=== PATIENT | female | born 1950 | race Caucasian/White ===

== ENCOUNTER → 2017-03-15 | Outpatient (CLI) | payer MEDICARE | END | disposition home or self-care (01) | LOC: LABWHC1 10:26 | PROVIDERS: ATTEND Internal Medicine Rheumatology | DX: M31.4 Aortic arch syndrome [Takayasu] (principal); Z51.81 Encounter for therapeutic drug level monitoring | CPT/HCPCS: 36415; 85652 ==

== ENCOUNTER → 2017-04-27 | Outpatient (CLI) | payer MEDICARE ==
--- NOTE | 2017-04-27 16:58 | BD ---
EXAMINATION TYPE: MG DEXA axial skeleton. DATE OF EXAM: 04/27/2017 History: 67-year-old female disorder of bone. Height: 64 Weight: 141 FRAX RISK QUESTIONS: Alcohol (3 or more units per day): no Family History (Parent hip fracture): yes, mother Glucocorticoids (More than 3mos): yes (Ex: prednisone, prednisolone, methylprednisolone, dexamethasone, and hydrocortisone). History of Fracture in Adulthood: no Secondary Osteoporosis: 1. Type 1 Diabetes: no 2. Hyperthyroidism: no 3. Menopause before 45: no 4. Malnutrition: no 5. Chronic liver disease: no Rheumatoid Arthritis: no Current Tobacco Use: no RISK FACTORS HISTORY OF: Hip Fracture (Right/Left): no Spine Fracture: no History of Wrist Fracture: no Surgery to Spine/Hip(right/left)/Wrist (right/left): no Family History of Osteoporosis: yes Active: yes Diet low in dairy products/other sources of calcium: no Postmenopausal woman: yes Take estrogen and/or progesterone medications: not now How lon years Lost more than 2 inches in height since high school: no Frequent falls: no Poor Health: no Hyperparathyroidism: no Adrenal Insufficiency: no MEDICATIONS: Prednisone or other steroids: yes How Long: about 20 years Thyroid Medications: no Osteoporosis Medications: not now Which medication: does not recall How Long: years ago Additional Medications: Enbrel Additional History: Takayasu's arteritis EXAM MEASUREMENTS: Bone mineral densitometry was performed using the [employer] System. Bone mineral density as measured about the Lumbar spine is: ----- L1-L4(G/cm2): 0.954 T Score Values are as follows: ----- L2: -2.4 ----- L3: -1.8 ----- L4: -1.4 ----- L1-L4: -1.9 Bone mineral density has: Decreased -1.4% since study of: 08/01/2014 Bone mineral density about the R hip (g/cm2): 0.818 Bone mineral density about the L hip (g/cm2): 0.842 T Score values are as follows: -----R Neck: -1.6 -----L Neck: -1.4 -----R Total: -1.4 -----L Total: -1.4 Bone mineral density has: Decreased -1.2% since study of: 08/01/2014 IMPRESSION: Osteopenia (T Score between -2.5 and -1 as noted by T score values There is slightly increased risk of fracture and the patient may be considered for treatment. Re-Screen 2-5 years. NOTE: T-SCORE=SD OF THE YOUNG ADULT MEAN.
--- NOTE | 2017-04-28 07:52 | MM ---
Reason for exam: screening (asymptomatic). Last mammogram was performed 1 year and 1 month ago. History: Patient is postmenopausal. Family history of breast cancer in maternal cousin and breast cancer in paternal grandmother. Took estrogen for 2 years. Physical Findings: A clinical breast exam by your physician is recommended on an annual basis and results should be correlated with mammographic findings. MG 3D Screening Mammo W/Cad Bilateral CC and MLO view(s) were taken. Prior study comparison: March 24, 2016, bilateral MG 3d screening mammo w/cad. December 18, 2014, bilateral MG screening mammo w CAD. The breast tissue is heterogeneously dense. This may lower the sensitivity of mammography. No significant changes when compared with prior studies. ASSESSMENT: Benign, BI-RAD 2 RECOMMENDATION: Routine screening mammogram of both breasts in 1 year.
--- NOTE | 2017-04-28 10:16 | WWHP ---
DATE OF SERVICE: 04/27/2017 CHIEF COMPLAINT: The patient is here for her routine gynecologic exam and mammogram. HPI: This is a 67-year-old G2, P2 with an LMP of 2005. The patient is without gynecologic complaints and denies any postmenopausal bleeding. She denies any significant problems with vaginal prolapse. She did have an abnormal PAP smear last year showing ASCUS with a negative high risk HPV testing. PAST MEDICAL HISTORY: Takayasu's arteritis, anxiety, seasonal allergies, and osteopenia. She did use bisphosphonates for 2 years up to 2011. MEDICATIONS: 1. Calcium 1200 mg daily. 2. Multivitamin daily. 3. Enbrel injections every other week. 4. Zoloft daily. 5. Claritin p.r.n. 6. Glucosamine daily. 7. Drysol antiperspirant p.r.n. 8. Prednisone 5 mg daily. Allergies to methotrexate. Past surgical, [employer] and family histories are unchanged from the 2016 H&P. SOCIAL HISTORY: She denies tobacco and drug use and drinks about 3 to 4 alcohol -containing drinks per week. She has been since 1970 and is retired. She enjoys traveling with [employer]. REVIEW OF SYSTEMS: Weight has been stable. She denies respiratory, cardiac or GI problems. She denies maltreatment. She states she has fallen twice when she tripped over things on two different occasions during the year but there was no significant injury. : She denies any significant problems with urinary leakage. PHYSICAL EXAM: Blood pressure 119/77, height 5 feet, 4 inches, weight 141 pounds, temperature 97.5, pulse 62. This is a well-developed, well nourished white female who is alert and oriented x3 in no acute distress. HEENT is within radha limits. NECK: Supple without mass or thyromegaly. Chest and lungs clear to auscultation. HEART: Regular rate and rhythm. Breasts are without mass or discharge. Axillary exam is negative for adenopathy. Back negative for CVA tenderness. ABDOMEN: Soft, nontender without palpable masses. PELVIC EXAM: External genitalia reveals mild to moderate atrophy without lesions. Cervix and vagina reveals mild to moderate atrophy without lesions. There is no significant prolapse at rest but there is a grade 2 cystocele with Valsalva. No other prolapse is noted. The uterus is midposition, nongravid size and nontender. There are no palpable adnexal masses or tenderness. Rectovaginal exam is negative for mass or tenderness and is negative for occult blood. EXTREMITIES: Nontender. IMPRESSION: 1. A 67-year-old menopausal female with stable grade 2 cystocele which is asymptomatic. 2. Otherwise unremarkable gynecologic exam. PLAN: 1. PAP smear was performed. 2. Self-breast examination was discussed. 3. Mammogram will be done today. 4. Osteoporosis prevention was discussed. Bone density testing will be done today. 5. She will consider getting flu shots in the fall. 6. We have discussed the 2 trips and falls that she has taken and these were minor. She is declining any other work-up or testing for this. 7. She will return in 1 year. REG
== END ==
LOC: WWCWWP 10:36
PROVIDERS: ATTEND Obstetrics & Gynecology
DX: Z12.31 Encounter for screening mammogram for malignant neoplasm of breast (principal); M85.80 Other specified disorders of bone density and structure, unspecified site; Z78.0 Asymptomatic menopausal state
CPT/HCPCS: 77080; 77063; G0202

== ENCOUNTER → 2018-03-07 | Outpatient (CLI) | payer MEDICARE | END | disposition home or self-care (01) | LOC: LABWHC1 13:23 | PROVIDERS: ATTEND Internal Medicine Rheumatology | DX: Z51.81 Encounter for therapeutic drug level monitoring (principal); M31.4 Aortic arch syndrome [Takayasu] | CPT/HCPCS: 36415; 85652 ==

== ENCOUNTER → 2018-06-15 | Outpatient (CLI) | payer MEDICARE ==
[2018-06-15 09:07] VITALS: BP 116/69; PULSE 69; TEMP 96.8; BMI 24.2
--- NOTE | 2018-06-15 09:53 | P.HPOB ---
History of Present Illness H&P Date: 06/15/18 Chief Complaint: The patient is here for her routine gynecologic exam and mammogram. This is a 68-year-old with an LMP of 2004. The patient is without gynecologic complaints. She is wondering if she may have a low grade UTI. She has had urinary tract infections in the past. She was treated for a UTI about 1 month ago when she was having dysuria and urinary frequency. Within the last few days, she thinks she may have slight urinary frequency without dysuria. She has also been less energetic and has had a lack of enthusiasm. Review of Systems Her weight has been stable. She denies respiratory, cardiac and G.I. problems. She denies maltreatment or problems with falling. : she denies any significant problems with urinary leakage. Past Medical History Additional Past Medical History / Comment(s): takayasu's arteritis, seasonal allergies and osteopenia (used bisphosphonates for 2 yrs until 2011). 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 History of Any Multi-Drug Resistant Organisms: None Reported Past Surgical History: Tubal Ligation Additional Past Surgical History / Comment(s): rectocele, and enterocele repairs 1992, corotid brachial bypass, right subclavian artery surgery. Past Psychological History: Anxiety Smoking Status: Never smoker Past Alcohol Use History: Occasional (4 per week) Past Drug Use History: None Reported Additional History: She is been since 1970 and is retired. She enjoys traveling. - Past Family History Mother Additional Family Medical History / Comment(s): Osteoporosis. She believes her grandmother had breast cancer. Father Family Medical History: CVA/TIA Medications and Allergies Home Medications Medication Instructions Recorded Confirmed Type Aluminum Chloride [Drysol] TOPICAL WEEKLY 06/15/18 History Cetirizine HCl [Zyrtec] mg PO DAILY 06/15/18 History Etanercept [Enbrel] mg INJ DAILY 06/15/18 History Sertraline [Zoloft] PO DAILY 06/15/18 History predniSONE mg PO DAILY 06/15/18 History traZODone HCL [Desyrel] mg PO HS 06/15/18 History Allergies Allergy/AdvReac Type Severity Reaction Status Date / Time No Known Allergies Allergy Unverified 06/15/18 08:59 Exam Vital Signs Temp Pulse BP 06/15/18 09:03 96.8 F L 69 116/69 Intake and Output 06/14/18 06/15/18 06/15/18 22:59 06:59 14:59 Other: Weight 63.957 kg Height 5'4", BMI 24.2. This is a well-developed well-nourished white female who is alert and oriented times 3 in no acute distress. HEENT: Within normal limits. NECK: Supple without mass or thyromegaly. CHEST AND LUNGS: Clear to auscultation. HEART: Regular rate and rhythm. BREASTS: Are without mass or discharge. There is minimal tenderness at the upper aspect of the left breast which she states she has had for a few years. She attributes it to doing push-up exercises. AXILLARY EXAM: Negative for adenopathy. BACK: Negative for CVA tenderness. ABDOMEN: Soft, nontender, without palpable masses. PELVIC EXAM: Normal external genitalia with mild to moderate atrophy. Cervix and vagina appear normal mild atrophy. There is no unusual discharge. There is no evidence of prolapse. The uterus is midposition, nongravid size and nontender. There are no palpable adnexal masses or tenderness. RECTAL EXAM: rectovaginal exam is negative for mass or tenderness and is negative for occult blood. EXTREMITIES: Nontender. IMPRESSION: 1. 68-year-old menopausal female with normal gynecologic exam. 2. History of grade 2 cystocele. 3. Mild urinary frequency, possible UTI. 4. History of osteopenia PLAN: 1. Pap smear was deferred since she had normal one last year. 2. Self breast awareness was discussed with the patient. 3. Screening mammogram will be done today. 4. Osteoporosis prevention was discussed. I have recommended that she repeat her bone density test in one year. 5. We will obtain urine specimen for urinalysis and urine culture. 6. She typically does not get flu shots in the fall, but she will consider this as I am recommending yearly flu shots. 7. I have recommended screening colonoscopy since she has never had one. She does not want to have this done for personal reasons. We also discussed Cologard screening. She will further discuss her options with her primary care physician. 8. She will return in one year.
[2018-06-15 14:12] LABS: Appearance,Urine Clear (Clear); Bilirubin,Urine Negative (Negative); Blood,Urine Negative (Negative); Color,Urine Light Yellow; Glucose,Urine (UA) Negative (Negative); Ketones,Urine Negative (Negative); Leukocyte Esterase,Urine Negative (Negative); Nitrite,Urine Negative (Negative); PH, Urine 5.5 (5.0-8.0); Protein,Urine Negative (Negative); Specific Gravity,Urine 1.005 (1.001-1.035); Urobilinogen,Urine <2.0 mg/dL (<2.0)
--- NOTE | 2018-06-16 14:21 | MM ---
Reason for exam: screening (asymptomatic). Last mammogram was performed 1 year and 2 months ago. History: Patient is postmenopausal. Family history of breast cancer in maternal cousin and breast cancer in paternal grandmother. Took estrogen for 2 years. Physical Findings: A clinical breast exam by your physician is recommended on an annual basis and results should be correlated with mammographic findings. MG 3D Screening Mammo W/Cad Bilateral CC and MLO view(s) were taken. Prior study comparison: April 27, 2017, bilateral MG 3d screening mammo w/cad. March 24, 2016, bilateral MG 3d screening mammo w/cad. The breast tissue is heterogeneously dense. This may lower the sensitivity of mammography. There are benign appearing round calcifications in the left breast. Asymmetric breast tissue in the left upper outer quadrant and right inferiorly, stable. There is no discrete abnormality. ASSESSMENT: Benign, BI-RAD 2 RECOMMENDATION: Routine screening mammogram of both breasts in 1 year.
--- NOTE | 2018-06-21 09:28 | P.PN ---
Progress Note - Text Progress Note Date: 06/21/18 OUTPATIENT FOLLOW-UP NOTE TEST(S)/RESULTS: urinalysis and urine culture or both negative for infection on 06/15/2018. METHOD OF NOTIFICATION: a message was left on the patient's voicemail regarding the negative urine results on 06/17/2018. PATIENT COMMENTS: DIAGNOSIS: urine testing negative for infection DISCUSSION: PLAN: the patient was advised on the voicemail to consider other causes for her symptoms and to call if questions.
== END | disposition home or self-care (01) ==
LOC: WWCWWP 08:40
PROVIDERS: ATTEND Obstetrics & Gynecology
DX: Z12.31 Encounter for screening mammogram for malignant neoplasm of breast (principal)
CPT/HCPCS: 77063; 77067; 81003; 87086

== ENCOUNTER → 2018-09-08 | Outpatient (CLI) | payer MEDICARE | END | disposition home or self-care (01) | LOC: LABWHC1 13:50 | PROVIDERS: ATTEND Internal Medicine Rheumatology | DX: Z51.81 Encounter for therapeutic drug level monitoring (principal); M31.4 Aortic arch syndrome [Takayasu] | CPT/HCPCS: 36415; 85652 ==

== ENCOUNTER → 2019-03-07 | Outpatient (CLI) | payer MEDICARE | END | disposition home or self-care (01) | LOC: LABWHC1 11:44 | PROVIDERS: ATTEND Internal Medicine Rheumatology | DX: M31.4 Aortic arch syndrome [Takayasu] (principal); Z51.81 Encounter for therapeutic drug level monitoring | CPT/HCPCS: 36415; 85652 ==

== ENCOUNTER → 2020-04-24 | Outpatient (CLI) | payer MEDICARE | END | disposition home or self-care (01) | LOC: LABWHC1 10:20 | PROVIDERS: ATTEND Internal Medicine Rheumatology | DX: M31.4 Aortic arch syndrome [Takayasu] (principal); Z51.81 Encounter for therapeutic drug level monitoring; Z79.899 Other long term (current) drug therapy | CPT/HCPCS: 36415; 85652 ==

== ENCOUNTER → 2020-04-30 | Outpatient (CLI) | payer MEDICARE ==
[2020-04-30 21:16] LABS: Albumin/Globulin Ratio 1.54 (1.60-3.17); BUN/Creat Ratio 16.25 Ratio (12.00-20.00); Calcium 9.1 mg/dL (8.7-10.3); Globulin 2.6 g/dL (1.6-3.3); Magnesium 1.9 mg/dL (1.5-2.4); Non-African American GFR(CKD) 74.2 (60.0-200.0); Total Bilirubin 0.4 mg/dL (0.3-1.2); Total Protein 6.6 g/dL (6.2-8.2)
== END | disposition home or self-care (01) ==
LOC: LABWHC1 11:02
PROVIDERS: ATTEND Internal Medicine Interventional Cardiology
DX: I48.3 Typical atrial flutter (principal)
CPT/HCPCS: 36415; 80053; 83735

== ENCOUNTER → 2020-07-08 | Outpatient (CLI) | payer MEDICARE | END | disposition home or self-care (01) | LOC: LABWHC1 10:22 | PROVIDERS: ATTEND Surgery | DX: Z01.812 Encounter for preprocedural laboratory examination (principal); Z20.828 Contact with and (suspected) exposure to other viral communicable diseases | CPT/HCPCS: U0003; C9803 ==

== ENCOUNTER 2020-09-30 10:10 | Emergency (ER) | payer MEDICARE ==
[2020-09-30 10:16] VITALS: TEMP 97.5
[2020-09-30] MEDS ORDERED: MORPHINE SULFATE 2 MG/ML SYRINGE IVP STA (11:03)
[2020-09-30] MEDS ORDERED: ONDANSETRON 4 MG/2 ML VIAL IVP STA (11:03)
[2020-09-30] MEDS ORDERED: SODIUM CHLORIDE 0.9% 500 ML 500 ML IV ONE (11:03)
--- NOTE | 2020-09-30 11:03 | ED ---
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 Patient states that [place] eve she had 2 episodes of vomiting one at 1 PM and 3 PM. Patient states Wednesday she was good but she did eat a lot of sugar as it was [place]. Patient states Wednesday she was at surface secondary to the sugar which she had very severe diarrhea and abdominal cramping. Patient states on Wednesday she was okay the following day she states that this morning she woke up with bloating severe cramping unable to eat food she just states she has lower abdominal pain. Patient denies bloody stool she said she deformed stool today. She denies fevers cough congestion. Pt concerned that symptoms have been ongoing for so many days on and off and presented to the ER. Pt took tylenol for cramping at 9AM for the discomfort. - Related Data Home Medications Medication Instructions Recorded Confirmed Cetirizine HCl [Zyrtec] 10 mg PO DAILY 06/15/18 09/30/20 Sertraline [Zoloft] 25 mg PO DAILY 06/15/18 09/30/20 predniSONE 5 mg PO DAILY 06/15/18 09/30/20 traZODone HCL [Desyrel] 100 mg PO HS 06/15/18 09/30/20 Acetaminophen [Children's Tylenol] 640 mg PO ONCE PRN 09/30/20 09/30/20 Fluticasone Nasal [place] [Flonase 1 spr EA NOSTRIL DAILY PRN 09/30/20 09/30/20 Nasal [place]] Allergies Allergy/AdvReac Type Severity Reaction Status Date / Time Iodinated Contrast Media Allergy Rash/Hives Verified 09/30/20 11:23 Review of Systems ROS Statement: Those systems with pertinent positive or pertinent negative responses have been documented in the HPI. ROS Other: All systems not noted in ROS Statement are negative. Past Medical History Additional Past Medical History / Comment(s): takayasu's arteritis, seasonal allergies and osteopenia (used bisphosphonates for 2 yrs until 2011). 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 History of Any Multi-Drug Resistant Organisms: None Reported Past Surgical History: Tubal Ligation Additional Past Surgical History / Comment(s): rectocele, and enterocele repairs 1992, corotid brachial bypass, right subclavian artery, esophogectomy surgery. Past Psychological History: Anxiety Smoking Status: Never smoker Past Alcohol Use History: Occasional Past Drug Use History: None Reported - Past Family History Mother Additional Family Medical History / Comment(s): Osteoporosis. She believes her grandmother had breast cancer. Father Family Medical History: CVA/TIA General Exam - General Exam Comments Initial Comments: General: The patient is awake and alert, in no distress Eye: +3 mm pupils are equal, round and reactive to light, extra-ocular movements are intact. No nystagmus. There is normal conjunctiva bilaterally. No signs of icterus. Ears, nose, mouth and throat: There are moist mucous membranes and no oral lesions. Neck: The neck is supple, there is no tenderness or JVD. Cardiovascular: There is a regular rate and rhythm. No murmur, rub or gallop is appreciated. Respiratory: Lungs are clear to auscultation, respirations are non-labored, breath sounds are equal. No wheezes, stridor, rales, or rhonchi. Gastrointestinal: Soft, non-distended, diffuse mild to moderate tenderness of the lower quadrants of the abdomen, abdomen without masses or organomegaly noted. There is no rebound or guarding present. Musculoskeletal: Normal ROM, no tenderness. Strength 5/5. Sensation intact. Radial pulses equal bilaterally 2+. Neurological: A&O x 3. CN II-XII intact grossly, There are no obvious motor or sensory deficits. Coordination appears grossly intact. Speech is normal. Skin: Skin is warm and dry and no rashes or lesions are noted. Psychiatric: Cooperative, appropriate mood & affect, normal judgment. Limitations: no limitations Course Vital Signs 09/30/20 09/30/20 09/30/20 10:11 12:07 13:49 Temperature 97.5 F L Pulse Rate 71 68 78 Respiratory 16 19 18 Rate Blood Pressure 134/85 134/84 136/87 O2 Sat by Pulse 99 98 100 Oximetry Medical Decision Making - Medical Decision Making pt labs stable. CT no definite acute process, there are the noted post surgical changes from esophagectomy. pt symptoms controlled in the ER. discussed case with attending Dr. abreu who is agreeable to discharge with pcp f/u. pt agreeable and prefers discharge at this time. - Lab Data Result diagrams: 09/30/20 11:07 09/30/20 11:07 Lab Results 09/30/20 09/30/20 09/30/20 Range/Units 11:07 11:07 11:07 WBC 6.8 (3.8-10.6) k/uL RBC 4.47 (3.80-5.40) m/uL Hgb 14.0 (11.4-16.0) gm/dL Hct 42.9 (34.0-46.0) % MCV 95.8 (80.0-100.0) fL MCH 31.3 (25.0-35.0) pg MCHC 32.7 (31.0-37.0) g/dL RDW 12.5 (11.5-15.5) % Plt Count 194 (150-450) k/uL MPV 7.3 Neutrophils % 77 % Lymphocytes % 14 % Monocytes % 6 % Eosinophils % 1 % Basophils % 0 % Neutrophils # 5.3 (1.3-7.7) k/uL Lymphocytes # 0.9 L (1.0-4.8) k/uL Monocytes # 0.4 (0-1.0) k/uL Eosinophils # 0.1 (0-0.7) k/uL Basophils # 0.0 (0-0.2) k/uL PT 10.4 (9.0-12.0) sec INR 1.0 (<1.2) APTT 22.3 (22.0-30.0) sec Sodium 138 (137-145) mmol/L Potassium 3.6 (3.5-5.1) mmol/L Chloride 104 (98-107) mmol/L Carbon Dioxide 27 (22-30) mmol/L Anion Gap 7 mmol/L BUN 19 H (7-17) mg/dL Creatinine 0.76 (0.52-1.04) mg/dL Est GFR (CKD-EPI)AfAm >90 (>60 ml/min/1.73 sqM) Est GFR (CKD-EPI)NonAf 80 (>60 ml/min/1.73 sqM) Glucose 122 H (74-99) mg/dL Lactic Ac Sepsis Rflx Plasma Lactic Acid Tacos (0.7-2.0) mmol/L Calcium 9.3 (8.4-10.2) mg/dL Total Bilirubin 0.6 (0.2-1.3) mg/dL AST 31 (14-36) U/L ALT 33 (4-34) U/L Alkaline Phosphatase 78 (38-126) U/L Total Protein 7.0 (6.3-8.2) g/dL Albumin 4.0 (3.5-5.0) g/dL Amylase 84 (30-110) U/L Lipase 155 (23-300) U/L Urine Color Urine Appearance (Clear) Urine pH (5.0-8.0) Ur Specific [place] (1.001-1.035) Urine Protein (Negative) Urine Glucose (UA) (Negative) Urine Ketones (Negative) Urine Blood (Negative) Urine Nitrite (Negative) Urine Bilirubin (Negative) Urine Urobilinogen (<2.0) mg/dL Ur Leukocyte Esterase (Negative) 09/30/20 09/30/20 09/30/20 Range/Units 11:07 11:22 11:38 WBC (3.8-10.6) k/uL RBC (3.80-5.40) m/uL Hgb (11.4-16.0) gm/dL Hct (34.0-46.0) % MCV (80.0-100.0) fL MCH (25.0-35.0) pg MCHC (31.0-37.0) g/dL RDW (11.5-15.5) % Plt Count (150-450) k/uL MPV Neutrophils % % Lymphocytes % % Monocytes % % Eosinophils % % Basophils % % Neutrophils # (1.3-7.7) k/uL Lymphocytes # (1.0-4.8) k/uL Monocytes # (0-1.0) k/uL Eosinophils # (0-0.7) k/uL Basophils # (0-0.2) k/uL PT (9.0-12.0) sec INR (<1.2) APTT (22.0-30.0) sec Sodium (137-145) mmol/L Potassium (3.5-5.1) mmol/L Chloride (98-107) mmol/L Carbon Dioxide (22-30) mmol/L Anion Gap mmol/L BUN (7-17) mg/dL Creatinine (0.52-1.04) mg/dL Est GFR (CKD-EPI)AfAm (>60 ml/min/1.73 sqM) Est GFR (CKD-EPI)NonAf (>60 ml/min/1.73 sqM) Glucose (74-99) mg/dL Lactic Ac Sepsis Rflx Y Plasma Lactic Acid Tacos 2.1 H* (0.7-2.0) mmol/L Calcium (8.4-10.2) mg/dL Total Bilirubin (0.2-1.3) mg/dL AST (14-36) U/L ALT (4-34) U/L Alkaline Phosphatase (38-126) U/L Total Protein (6.3-8.2) g/dL Albumin (3.5-5.0) g/dL Amylase (30-110) U/L Lipase (23-300) U/L Urine Color Yellow Urine Appearance Clear (Clear) Urine pH 6.5 (5.0-8.0) Ur Specific [place] 1.022 (1.001-1.035) Urine Protein Negative (Negative) Urine Glucose (UA) Negative (Negative) Urine Ketones Negative (Negative) Urine Blood Negative (Negative) Urine Nitrite Negative (Negative) Urine Bilirubin Negative (Negative) Urine Urobilinogen <2.0 (<2.0) mg/dL Ur Leukocyte Esterase Negative (Negative) Disposition Clinical Impression: Abdominal cramping, Diarrhea, Vomiting Disposition: HOME SELF-CARE Condition: Good Instructions (If sedation given, give patient instructions): Acute Nausea and Vomiting (ED), Acute Diarrhea (ED) Additional Instructions: Please use medication as discussed. Please follow-up with family doctor in the next 2 days. Please return to emergency room if the symptoms increase or worsen or for any other concerns. Is patient prescribed a controlled substance at d/c from ED?: No Referrals: Edgar Jacinto MD [Primary Care Provider] - 1-2 days Time of Disposition: 13:43
[2020-09-30] MEDS ORDERED: SODIUM CHLORIDE 0.9% 1,000 ML IV SCH (11:15)
[2020-09-30 11:16] LABS: Basophils % (A) 0 %; Eosinophils # (A) 0.1 k/uL (0-0.7); Eosinophils % (A) 1 %; HCT 42.9 % (34.0-46.0); Lymphocytes # (A) 0.9 k/uL (1.0-4.8); Lymphocytes % (A) 14 %; MCH 31.3 pg (25.0-35.0); MCHC 32.7 g/dL (31.0-37.0); MCV 95.8 fL (80.0-100.0); Mean Platelet Volume 7.3; Monocytes # (A) 0.4 k/uL (0-1.0); Monocytes % (A) 6 %; Neutrophils # (A) 5.3 k/uL (1.3-7.7); Neutrophils % (A) 77 %; Platelet Count 194 k/uL (150-450); RBC 4.47 m/uL (3.80-5.40); RDW 12.5 % (11.5-15.5); WBC 6.8 k/uL (3.8-10.6)
[2020-09-30 11:25] LABS: ALT 33 U/L (4-34); AST 31 U/L (14-36); African American GFR (CKD) >90 (>60 ml/min/1.73 sqM); Alkaline Phosphatase 78 U/L (38-126); Amylase 84 U/L (30-110); Anion Gap 7 mmol/L; Blood Urea Nitrogen 19 mg/dL (7-17); Calcium 9.3 mg/dL (8.4-10.2); Carbon Dioxide 27 mmol/L (22-30); Chloride 104 mmol/L (98-107); Glucose 122 mg/dL (74-99); Lipase 155 U/L (23-300); Non-African American GFR(CKD) 80 (>60 ml/min/1.73 sqM); Potassium 3.6 mmol/L (3.5-5.1); Sodium 138 mmol/L (137-145); Total Bilirubin 0.6 mg/dL (0.2-1.3)
[2020-09-30 11:30] LABS: Partial Thromboplastin Time 22.3 sec (22.0-30.0); Prothrombin Time 10.4 sec (9.0-12.0)
[2020-09-30 11:31] LABS: Appearance,Urine Clear (Clear); Bilirubin,Urine Negative (Negative); Blood,Urine Negative (Negative); Color,Urine Yellow; Glucose,Urine (UA) Negative (Negative); Ketones,Urine Negative (Negative); Leukocyte Esterase,Urine Negative (Negative); Nitrite,Urine Negative (Negative); PH, Urine 6.5 (5.0-8.0); Protein,Urine Negative (Negative); Specific Gravity,Urine 1.022 (1.001-1.035); Urobilinogen,Urine <2.0 mg/dL (<2.0)
[2020-09-30] MEDS ORDERED: methylPREDNISolone SOD SUCCI 125 MG/2 ML VIAL IV STA (11:41)
[2020-09-30] MEDS ORDERED: FAMOTIDINE 20 MG/2 ML VIAL IV STA (11:41)
[2020-09-30] MEDS ORDERED: diphenhydrAMINE 50 MG/ML 1 ML VIAL IVP STA (11:41)
--- NOTE | 2020-09-30 13:18 | CT ---
EXAMINATION TYPE: CT abdomen pelvis w con DATE OF EXAM: 09/30/2020 HISTORY: increased diarrhea, vomiting, nausea post esophagectomy CT DLP: 543.4mGycm Automated Exposure Control for Dose Reduction was Utilized. CONTRAST: CT scan of the abdomen and pelvis is performed without oral but with IV Contrast, patient injected wi th 100 mL of Isovue 300. COMPARISON: None. FINDINGS: LUNG BASES: There is left-sided diaphragm hernia seen best on coronal image 42 and sagittal image 71 with roughly 2.5 cm neck, this hernia contains fat along with tiny mesenteric vessels and portions of transverse colon. Portion of stomach also herniated. Visualized left lung base shows posterior groun dglass opacity. LIVER/GB: Gallbladder has distended margins. Biliary ducts measure upper limits of normal. Mild perip ortal edema, nonspecific finding. PANCREAS: Pancreatic duct visualized and measures mildly dilated up to 4 to 5 mm towards the duodenal ampulla. SPLEEN: No significant abnormality is seen. ADRENALS: No significant abnormality is seen. KIDNEYS: Symmetric cortical medullary uptake and excretion without hydronephrosis seen bilaterally. BOWEL: Suboptimal evaluation bowel without enteric contrast. No suspicious small or large bowel dilat ation. Dilated fluid-filled mid to distal esophagus just below [place] and most superior axial images. UTERUS/ADNEXA: Slightly retroflexed uterus. Prominent draining the ovarian veins bilaterally. Cannot exclude pelvic congestion syndrome. LYMPH NODES: No greater than 1cm abdominal or pelvic lymph nodes are appreciated. OSSEOUS STRUCTURES: Grade 1 anterolisthesis L4 on L5. Moderate disc space narrowing.. OTHER: No significant additional abnormality is seen. IMPRESSION: Left-sided diaphragmatic hernia defect is present and contains portion of stomach along w ith transverse colon along with fat and mesenteric vessels. Cannot exclude product of recent trauma o r rupture without prior comparison. Dilated fluid-filled mid to distal esophagus proximal to this. Ov erall nonobstructive bowel gas pattern.
[2020-09-30 13:49] VITALS: BP 136/87; PULSE 78; RESP 18
== END 2020-09-30 13:54 | disposition home or self-care (01) ==
LOC: EC 10:10
DX: R10.30 Lower abdominal pain, unspecified (principal); R19.7 Diarrhea, unspecified; R11.10 Vomiting, unspecified; F41.9 Anxiety disorder, unspecified; Z79.899 Other long term (current) drug therapy; Z79.52 Long term (current) use of systemic steroids; Z91.041 Radiographic dye allergy status; Z90.49 Acquired absence of other specified parts of digestive tract; Z98.51 Tubal ligation status
CPT/HCPCS: 36415; 80053; 82150; 83605; 83690; 85025; 85610; 85730; 81003; 74177; 99284; 96374; 96375 ×4; 96361 ×3; J1200; J2930; J2405; J2270; Q9967

== ENCOUNTER → 2020-12-30 | Outpatient (CLI) | payer MEDICARE ==
[2020-12-30 10:56] LABS: Albumin 4.1 g/dL (3.80-4.90); Albumin/Globulin Ratio 1.78 (1.60-3.17); BUN/Creat Ratio 16.25 Ratio (12.00-20.00); Calcium 9.3 mg/dL (8.7-10.3); Chol/HDL Ratio 1.83; Globulin 2.3 g/dL (1.6-3.3); Non-African American GFR(CKD) 74.2 (60.0-200.0); Potassium 4.4 mmol/L (3.5-5.5); Total Bilirubin 0.5 mg/dL (0.3-1.2); Total Protein 6.4 g/dL (6.2-8.2)
== END | disposition home or self-care (01) ==
LOC: LABWHC1 07:13
PROVIDERS: ATTEND Nurse Practitioner Adult Health
DX: I48.3 Typical atrial flutter (principal); E78.2 Mixed hyperlipidemia
CPT/HCPCS: 36415; 80053; 80061

== ENCOUNTER → 2021-09-17 | Outpatient (CLI) | payer MEDICARE | END | disposition home or self-care (01) | LOC: LABWHC1 10:54 | PROVIDERS: ATTEND Internal Medicine | DX: Z51.81 Encounter for therapeutic drug level monitoring (principal); M31.4 Aortic arch syndrome [Takayasu] | CPT/HCPCS: 36415; 85652 ==

== ENCOUNTER → 2021-10-28 | Outpatient (CLI) | payer MEDICARE ==
[2021-10-28 08:06] VITALS: BP 131/87; PULSE 102; RESP 18; TEMP 97.8
--- NOTE | 2021-10-28 08:47 | P.HPOB ---
History of Present Illness H&P Date: 10/28/21 Chief Complaint: The patient is here for her routine gynecologic exam and ma mmogram. This is a 71-year-old with an LMP of 2005. The patient is without gynecologic complaints and denies any postmenopausal bleeding. She had an abnormal Pap smear in 2016 showing ASCUS with negative high-risk HPV testing. Pap smear done on 04/27/2017 was negative. That was her last Pap smear done. Review of Systems She has lost about 16 pounds over the past 3 years. She denies respiratory, cardiac, or GI problems. 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 Takayasu's arteritis, seasonal allergies and osteopenia (used bisphosphonates for 2 yrs until 2011). PAST CERTIFIED MASSAGE THERAPIST HISTORY: She has no history of STDs. History of Any Multi-Drug Resistant Organisms: None Reported Past Surgical History: Tubal Ligation Additional Past Surgical History / Comment(s): rectocele, and enterocele repairs 1992, corotid brachial bypass, right subclavian artery, esophogectomy surgery 2019. Past Psychological History: Anxiety Smoking Status: Never smoker Past Alcohol Use History: Rare Past Drug Use History: None Reported Additional History: She has been since 1970 and is retired. She is sexually active. She enjoys traveling. - Past Family History Mother Additional Family Medical History / Comment(s): Osteoporosis. She believes her grandmother had breast cancer. Father Family Medical History: CVA/TIA Medications and Allergies Home Medications Medication Instructions Recorded Confirmed Type Cetirizine HCl [Zyrtec] 10 mg PO DAILY 06/15/18 10/28/21 History Sertraline [Zoloft] 25 mg PO DAILY 06/15/18 10/28/21 History predniSONE 5 mg PO DAILY 06/15/18 10/28/21 History traZODone HCL [Desyrel] 100 mg PO HS 06/15/18 10/28/21 History Acetaminophen [Children's Tylenol] 640 mg PO ONCE PRN 09/30/20 10/28/21 History Fluticasone Nasal [place] [Flonase 1 spr EA NOSTRIL DAILY PRN 09/30/20 10/28/21 History Nasal [place]] Amitriptyline HCl 20 mg PO BID 10/28/21 10/28/21 History Aspirin 81 mg PO HS 10/28/21 10/28/21 History Ezetimibe [Zetia] 10 mg PO DAILY 10/28/21 10/28/21 History Allergies Allergy/AdvReac Type Severity Reaction Status Date / Time Iodinated Contrast Media Allergy Rash/Hives Verified 10/28/21 07:58 Exam Vital Signs Temp Pulse Resp BP Pulse Ox 10/28/21 08:00 97.8 F 102 H 18 131/87 99 Intake and Output 10/27/21 10/28/21 10/28/21 22:59 06:59 14:59 Other: Weight 56.245 kg Height 5 feet 3 inches, weight 124 pounds, BMI 22.0. This is a well-developed well-nourished white female who is alert and oriented times 3 in no acute distress. HEENT: Within normal limits. NECK: Supple without mass or thyromegaly. CHEST AND LUNGS: Clear to auscultation. HEART: Regular rate and rhythm. BREASTS: Are without mass or discharge. AXILLARY EXAM: Negative for adenopathy. BACK: Negative for CVA tenderness. ABDOMEN: Soft, nontender, without palpable masses. PELVIC EXAM: Normal external genitalia with mild atrophy. Cervix and vagina appear normal with mild atrophy. There is no unusual discharge. There is no evidence of prolapse. The uterus is midposition, nongravid size and nontender. There are no palpable adnexal masses or tenderness. RECTAL EXAM: Rectovaginal exam is negative for mass or tenderness and is negative for occult blood. EXTREMITIES: Nontender. IMPRESSION: 1. 71-year-old menopausal female with normal gynecologic exam. 2. History of ASCUS Pap smear with negative high-risk HPV testing in 2016. Her Pap smear on 04/27/2017 was negative. No history of cervical neoplasia. 3. History of osteopenia status post 2 years use of bisphosphonates in the past. PLAN: 1. Pap smear was performed. If this is negative, Pap smears will be discontinued since she has had adequate screening in the past. This is being done because of her mildly abnormal Pap smear in 2016. 2. Self breast awareness was discussed with the patient. We have also discussed symptoms associated with inflammatory breast cancer. 3. Screening mammogram will be done today. 4. Osteoporosis prevention was discussed. I have stressed the importance of adequate calcium, vitamin D and regular exercise. Recommended amounts of calcium and vitamin D were also discussed. The last bone density test that I have on record is from 04/27/2017. She believes she had one done within the last couple of years through her PCP at his office. She will check with him to see when it was last done. If it has been more than 3 years since her last one, I recommended that she redo the bone density test and an order slip was given to the patient for this. She can also do her bone density testing through her PCP. 5. She has completed her Covid vaccination series and has received her booster. 6. The patient was advised to return in 1-2 years for her well woman examination.
--- NOTE | 2021-10-29 09:28 | MM ---
Reason for exam: screening (asymptomatic). Last mammogram was performed 3 years and 4 months ago. History: Patient is postmenopausal and history of other cancer. Family history of breast cancer in maternal cousin and breast cancer in paternal grandmother. Took estrogen for 2 years. Physical Findings: A clinical breast exam by your physician is recommended on an annual basis and results should be correlated with mammographic findings. MG 3D Screening Mammo W/Cad Bilateral CC and MLO view(s) were taken. Prior study comparison: June 15, 2018, bilateral MG 3d screening mammo w/cad. April 27, 2017, bilateral MG 3d screening mammo w/cad. The breast tissue is heterogeneously dense. This may lower the sensitivity of mammography. Benign oil cyst calcifications on the left. No significant changes when compared with prior studies. ASSESSMENT: Benign, BI-RAD 2 RECOMMENDATION: Routine screening mammogram of both breasts in 1 year.
== END ==
LOC: WWCWWP 07:47
PROVIDERS: ATTEND Obstetrics & Gynecology
DX: Z12.31 Encounter for screening mammogram for malignant neoplasm of breast (principal); F41.9 Anxiety disorder, unspecified; Z87.39 Personal history of other diseases of the musculoskeletal system and connective tissue; Z79.899 Other long term (current) drug therapy; Z91.041 Radiographic dye allergy status
CPT/HCPCS: 77063; 77067

== ENCOUNTER → 2021-12-24 | Outpatient (CLI) | payer MEDICARE ==
[2021-12-24 14:10] LABS: ALT 23 U/L (8-44); AST 25 U/L (13-35); African American GFR (CKD) 81.5 (60.0-200.0); Albumin 4.3 g/dL (3.8-4.9); Albumin/Globulin Ratio 1.53 (1.60-3.17); Alkaline Phosphatase 79 U/L (41-126); BUN/Creat Ratio 11.14 Ratio (12.00-20.00); Blood Urea Nitrogen 9.3 mg/dL (9.0-27.0); Calcium 9.3 mg/dL (8.7-10.3); Carbon Dioxide 26.3 mmol/L (20.0-27.5); Chloride 104 mmol/L (96-109); Chol/HDL Ratio 2.21 Ratio; Globulin 2.8 g/dL (1.6-3.3); Glucose 93 mg/dL (70-110); LDL Cholesterol,Calculated 73.9 mg/dL (0.0-131.0); Non-African American GFR(CKD) 70.4 (60.0-200.0); Potassium 4.3 mmol/L (3.5-5.5); Sodium 142 mmol/L (135-145); Total Protein 7.1 g/dL (6.2-8.2); VLDL Calculation 14.26 mg/dL (5.00-40.00)
== END | disposition home or self-care (01) ==
LOC: LABWHC1 08:36
PROVIDERS: ATTEND Nurse Practitioner Adult Health
DX: E78.2 Mixed hyperlipidemia (principal)
CPT/HCPCS: 36415; 80053; 80061

== ENCOUNTER → 2022-03-27 | Outpatient (CLI) | payer MEDICARE ==
--- NOTE | 2022-03-27 16:20 | MR ---
EXAMINATION TYPE: MR tspine/lspine wo con DATE OF EXAM: 03/27/2022 COMPARISON: MR lumbar spine 09/06/2017 HISTORY: M51.16 TECHNIQUE: Multiplanar, multisequence imaging of the thoracic and lumbar spine is performed without I V contrast. FINDINGS: Thoracic spine MRI: Thoracic vertebral bodies show preserved alignment, height, and bone marrow signa l. Disc spaces show some mild loss of signal and height consistent with dessication and degenerative disc disease. There is normal cord caliber and signal. Facet arthropathy changes are present. No for aminal encroachment or disc herniation. Suspect post op changes to the stomach, esophagus. Lumbar spine MRI: Lumbar vertebral bodies show preserved height. There is an anterolisthesis grade 1 at L4-5. Bone marrow signal is maintained with exception of some endplate marrow signal change at L4- 5. There is associated loss of disc height signal consistent with disc desiccation and degenerative d isc disease. At T12-L1 the conus is normal. Tarlov cysts noted over the sacrum. L5-S1: There is facet arthropathy changes. No disc herniation or significant foraminal encroachment. No significant spinal stenosis. L4-5: Listhesis contributes to cause bilateral foraminal encroachment. There is facet arthropathy wit h hypertrophy ligamentum flavum, resulting trefoil appearance of the thecal sac. Some mild spinal carin nosis is noted. L3-4: Posterior broad-based disc bulge causes mild anterior mass effect on the thecal sac. Circumfere ntial extension of disc material encroaches minimally on the inferior aspect of the foramina. No sign ificant spinal stenosis. No other evident disc herniation or significant foraminal encroachment. IMPRESSION: Degenerative disc disease, facet arthropathy, spondylolisthesis and foraminal encroachmen t as described.
== END | disposition home or self-care (01) ==
LOC: RADMRIMAIN 14:24
PROVIDERS: ATTEND Family Medicine
DX: M51.16 Intervertebral disc disorders with radiculopathy, lumbar region (principal); M51.34 Other intervertebral disc degeneration, thoracic region; M43.16 Spondylolisthesis, lumbar region; M99.73 Connective tissue and disc stenosis of intervertebral foramina of lumbar region
CPT/HCPCS: 72146; 72148

== ENCOUNTER → 2022-05-14 | Outpatient (CLI) | payer MEDICARE ==
--- NOTE | 2022-05-14 16:08 | CT ---
EXAMINATION TYPE: CT chest abdomen w con CT DLP: 360.6 mGycm, Automated exposure control for dose reduction was used. DATE OF EXAM: 05/14/2022 3:45 PM COMPARISON: CT abdomen pelvis 09/30/2020 CLINICAL INDICATION:Female, 72 years old with history of C15.9 MALIGNANT NEOPLASM OF ESOPHAGUS; PHH, Malignant neoplasm of esophagus Technique: Multiple axial images of the chest, abdomen were obtained. Two-dimensional coronal and sag ittal reconstructions were obtained. Contrast used:70 mL of Isovue 300 with IV Contrast, Oral contrast used: with Oral Contrast Findings: CHEST: LUNGS/ PLEURA: Solution, pneumothorax or pleural effusion. No suspicious pulmonary nodules. AIRWAY: Patent and unremarkable. HEART: Size within normal limits. MEDIASTINUM: No gross evidence of adenopathy. Gastric pull-through as described below. Esophageal wal ls are felt to be within normal limits without evidence of thickening VASCULATURE: No aortic aneurysm. MUSCULOSKELETAL: No acute osseous abnormalities. SOFT TISSUES/LYMPH NODES: Unremarkable. LOWER NECK: No significant findings. ABDOMEN: ABDOMEN LIVER: Unremarkable GALLBLADDER AND BILE DUCTS: Unremarkable. PANCREAS: Unremarkable. SPLEEN: Unremarkable. ADRENAL GLANDS: Unremarkable. KIDNEYS AND URETERS: No evidence of hydronephrosis or renal calculus. The ureters are unremarkable. STOMACH AND BOWEL: Postsurgical changes of the distal esophagus. Gastric pull-through changes. No tucker dence of esophageal wall thickening or evidence of lymphadenopathy. No Evidence of bowel obstruction. PERITONEUM: No evidence of pneumoperitoneum or free fluid. VASCULATURE: No evidence of aortic aneurysm. MUSCULOSKELETAL: No acute osseous abnormalities, multilevel disc degeneration changes are seen throug hout the spine with facet joint arthropathy. Mild DEXA scoliosis apex L4. LYMPH NODES: No gross evidence for lymphadenopathy. SOFT TISSUE/ABDOMINAL WALL: Unremarkable IMPRESSION: Postsurgical changes to the esophagus with gastric pull-through. No convincing evidence for recurrenc e.
== END | disposition home or self-care (01) ==
LOC: RADCTMAIN 13:48
PROVIDERS: ATTEND Surgery
DX: C15.9 Malignant neoplasm of esophagus, unspecified (principal); Z98.890 Other specified postprocedural states
CPT/HCPCS: 82565; 84520; 71260; 74160; 36415; Q9967

== ENCOUNTER → 2022-09-22 | Outpatient (CLI) | payer MEDICARE | END | disposition home or self-care (01) | LOC: LABWHC1 11:47 | PROVIDERS: ATTEND Internal Medicine | DX: Z51.81 Encounter for therapeutic drug level monitoring (principal); M31.4 Aortic arch syndrome [Takayasu] | CPT/HCPCS: 36415; 85652 ==

== ENCOUNTER → 2022-11-07 | Outpatient (CLI) | payer MEDICARE ==
[2022-11-07 11:26] LABS: ALT 33 U/L (8-44); AST 30 U/L (13-35); African American GFR (CKD) 84.8 (60.0-200.0); Albumin 4.1 g/dL (3.8-4.9); Albumin/Globulin Ratio 1.64 (1.60-3.17); Alkaline Phosphatase 62 U/L (41-126); BUN/Creat Ratio 13.13 Ratio (12.00-20.00); Blood Urea Nitrogen 10.5 mg/dL (9.0-27.0); Calcium 9.2 mg/dL (8.7-10.3); Carbon Dioxide 28.9 mmol/L (20.0-27.5); Chloride 104 mmol/L (96-109); Chol/HDL Ratio 1.99 Ratio; Globulin 2.5 g/dL (1.6-3.3); Glucose 86 mg/dL (70-110); LDL Cholesterol,Calculated 57.6 mg/dL (0.0-131.0); Non-African American GFR(CKD) 73.1 (60.0-200.0); Sodium 141 mmol/L (135-145); Total Protein 6.6 g/dL (6.2-8.2); VLDL Calculation 15.48 mg/dL (5.00-40.00)
== END | disposition home or self-care (01) ==
LOC: LABWHC1 08:12
PROVIDERS: ATTEND Internal Medicine Interventional Cardiology
DX: E78.2 Mixed hyperlipidemia (principal)
CPT/HCPCS: 36415; 80053; 80061

== ENCOUNTER → 2023-01-12 | Outpatient (CLI) | payer MEDICARE ==
[2023-01-12 12:45] VITALS: BP 101/63; PULSE 98; RESP 16; TEMP 98
--- NOTE | 2023-01-12 13:22 | P.HPOB ---
History of Present Illness H&P Date: 01/12/23 Chief Complaint: The patient is here for her routine gynecologic exam. This is a 72-year-old with an LMP of 2004. The patient is without gynecologic complaints and denies any postmenopausal bleeding. Review of Systems The patient's weight has been stable over the last year. She denies respiratory, cardiac, or G.I. problems. 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 Takayasu's arteritis, seasonal allergies and osteopenia (used bisphosphonates for 2 yrs until 2011). 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 History of Any Multi-Drug Resistant Organisms: None Reported Past Surgical History: Tubal Ligation Additional Past Surgical History / Comment(s): rectocele, and enterocele repairs 1992, corotid brachial bypass, right subclavian artery, esophogectomy surgery 2019. Past Anesthesia/Blood Transfusion Reactions: No Reported Reaction Past Psychological History: Anxiety Smoking Status: Never smoker Past Alcohol Use History: Occasional (2-3 per week.) Past Drug Use History: None Reported Additional History: She has been since 1970 and is retired. She is sexually active. She enjoys traveling. - Past Family History Mother Additional Family Medical History / Comment(s): Osteoporosis. She believes her grandmother had breast cancer. Father Family Medical History: CVA/TIA Medications and Allergies Home Medications Medication Instructions Recorded Confirmed Type Cetirizine HCl [Zyrtec] 10 mg PO DAILY 06/15/18 01/12/23 History Sertraline [Zoloft] 25 mg PO DAILY 06/15/18 01/12/23 History predniSONE 5 mg PO DAILY 06/15/18 01/12/23 History traZODone HCL [Desyrel] 100 mg PO HS 06/15/18 01/12/23 History Acetaminophen [Children's Tylenol] 640 mg PO ONCE PRN 09/30/20 01/12/23 History Fluticasone Nasal [place] [Flonase 1 spr EA NOSTRIL DAILY PRN 09/30/20 01/12/23 History Nasal [place]] Ezetimibe [Zetia] 10 mg PO DAILY 10/28/21 01/12/23 History Biotin 5 mg PO DAILY 01/12/23 01/12/23 History Collagen/Biotin/Ascorbic Acid 1 capsule PO DAILY 01/12/23 01/12/23 History [Collagen 1500 Plus C Capsule] Ubidecarenone [Co Q-10] 400 mg PO HS 01/12/23 01/12/23 History Allergies Allergy/AdvReac Type Severity Reaction Status Date / Time Iodinated Contrast Media Allergy Rash/Hives Verified 01/12/23 12:35 Exam Vital Signs Temp Pulse Resp BP Pulse Ox 01/12/23 12:41 98.0 F 98 16 101/63 96 Intake and Output 01/11/23 01/12/23 01/12/23 22:59 06:59 14:59 Other: Weight 55.111 kg Height 5 feet 3 inches, weight 122 pounds, BMI 21.5. This is a well-developed well-nourished white female who is alert and oriented times 3 in no acute distress. HEENT: Within normal limits. NECK: Supple without mass or thyromegaly. CHEST AND LUNGS: Clear to auscultation. HEART: Regular rate and rhythm. BREASTS: Are without mass or discharge. AXILLARY EXAM: Negative for adenopathy. BACK: Negative for CVA tenderness. ABDOMEN: Soft, nontender, without palpable masses. PELVIC EXAM: Normal external genitalia with mild to moderate atrophy. Cervix and vagina appear normal mild atrophy. There is no unusual discharge. There is a grade 1 rectocele and a grade 1 cystocele (noticed with Valsalva). The uterus is midposition, nongravid size and nontender. There are no palpable adnexal masses or tenderness. RECTAL EXAM: Rectovaginal exam is negative for mass or tenderness and is negative for occult blood. EXTREMITIES: Nontender. IMPRESSION: 1. 72-year-old menopausal female with asymptomatic grade 1 cystocele and grade 1 rectocele. 2. History of osteopenia. PLAN: 1. Pap smears have been discontinued. 2. Self breast awareness was discussed with the patient. We have also discussed symptoms associated with inflammatory breast cancer. 3. Screening mammogram is due and the order slip was given to the patient for this. 4. Osteoporosis prevention was discussed. I have stressed the importance of adequate calcium, vitamin D and regular exercise. Recommended amounts of calcium and vitamin D were also discussed. I recommended a bone density test since her last one was in 2019 and was done at her PCPs office. The order slip for the bone density test was given to the patient. She plans on doing this at the same time as her mammogram. 5. Colorectal cancer screening was discussed. She has been doing Cologuard testing through her PCP and should do this every 3 years. 6. The patient was advised to return in 1-2 years for her well woman examination and as needed.
== END ==
LOC: WWCWWP 12:23
PROVIDERS: ATTEND Obstetrics & Gynecology
DX: Z01.419 Encounter for gynecological examination (general) (routine) without abnormal findings (principal); M85.80 Other specified disorders of bone density and structure, unspecified site; N81.10 Cystocele, unspecified; Z79.52 Long term (current) use of systemic steroids; Z80.3 Family history of malignant neoplasm of breast; Z82.3 Family history of stroke; Z82.62 Family history of osteoporosis; Z85.01 Personal history of malignant neoplasm of esophagus; Z90.49 Acquired absence of other specified parts of digestive tract; Z92.21 Personal history of antineoplastic chemotherapy; Z92.3 Personal history of irradiation; Z91.041 Radiographic dye allergy status

== ENCOUNTER → 2023-01-19 | Outpatient (CLI) | payer MEDICARE ==
--- NOTE | 2023-01-19 22:07 | CT ---
EXAMINATION TYPE: CT ChestAbdPelvis wo con DATE OF EXAM: 01/19/2023 INDICATION: Follow up for esophageal cancer. COMPARISON: 1122 CT DLP: 717 mGycm CONTRAST: Performed with Oral Contrast TECHNIQUE: Axial images at 5 mm thick sections. Reconstructed images in the coronal plane. Delayed images through the kidneys. FINDINGS: CT CHEST: Portion of the thyroid visualized is normal. No suspicious lung nodules or focal infiltrates are present. There is a gastric pull-through. This contains oral contrast. No enlarged mediastinal or hilar adenopathy is evident. The ascending aorta diameter at the level of the main pulmonary artery is 3.3 cm. The main pulmonary artery diameter at the bifurcation is 2.[address] ABDOMEN: Liver: Normal Spleen: Normal Pancreas: Normal Adrenal glands: The adrenal glands are normal. Gallbladder: Normal Kidneys: No masses are evident. No hydronephrosis is present. No cysts are present. No renal stone s are evident. Aorta: Vascular calcification is within the aorta. Inferior vena cava: Normal. CT PELVIS: Loops of bowel within the abdomen and pelvis are normal. There are loops of bowel which are incom pletely distended or lack oral contrast limiting their evaluation. Appendix: Not identified. No dilated tubular structure or inflammatory change is evident. Urinary bladder: Normal. Genitourinary structures: Uterus appears normal. Adnexa are normal. Osseous structures: No suspicious lytic or sclerotic lesions. IMPRESSIONS: 1. Gastric pull-through. 2. No suspicious changes of esophageal cancer metastasis or recurrence.
== END | disposition home or self-care (01) ==
LOC: RADCTMAIN 09:52
PROVIDERS: ATTEND Surgery
DX: C15.4 Malignant neoplasm of middle third of esophagus (principal)
CPT/HCPCS: 71250; 74176

== ENCOUNTER → 2023-08-16 | Outpatient (CLI) | payer MEDICARE ==
--- NOTE | 2023-08-17 08:20 | US ---
EXAMINATION TYPE: US pelvis complete transvag DATE OF EXAM: 08/16/2023 COMPARISON: NONE CLINICAL INDICATION: Female, 73 years old with history of R10.2 PELVIC PAIN; Pelvic pain, recurring b ladder infection TECHNIQUE: Transvaginal (TV) and Transabdominal (TA) . Transabdominal sonographic images of the pel vis were acquired. Transvaginal sonographic images were medically necessary to better assess the fol lowing anatomy: per order Date of LMP: unknown EXAM MEASUREMENTS: Uterus: 6.1 x 2.4 x 3.6 cm Endometrial Stripe: 0.3 cm Right Ovary: unable to visualize Left Ovary: unable to visualize 1. Uterus: Retroverted hypoechoic lesion = 1.3 x 0.9 x 1.4cm fundus (fibroid) 2. Endometrium: appears wnl 3. Right Ovary: Obscured by overlying bowel gas 4. Left Ovary: Obscured by overlying bowel gas 5. Bilateral Adnexa: prominent vascularity bilaterally 6. Posterior cul-de-sac: wnl IMPRESSION: 1. Leiomyomatous changes.
== END | disposition home or self-care (01) ==
LOC: RADUSWWP 14:41
PROVIDERS: ATTEND Family Medicine
DX: D25.9 Leiomyoma of uterus, unspecified (principal); R10.2 Pelvic and perineal pain; N30.90 Cystitis, unspecified without hematuria
CPT/HCPCS: 76830; 76856

== ENCOUNTER → 2023-09-10 | Outpatient (CLI) | payer MEDICARE ==
[2023-09-10 11:32] LABS: ALT 26 U/L (8-44); AST 22 U/L (13-35); Albumin 4.2 g/dL (3.8-4.9); Albumin/Globulin Ratio 1.91 Ratio (1.60-3.17); Alkaline Phosphatase 58 U/L (41-126); BUN/Creat Ratio 17.62 Ratio (12.00-20.00); Blood Urea Nitrogen 14.1 mg/dL (9.0-27.0); Calcium 9.3 mg/dL (8.7-10.3); Carbon Dioxide 28.2 mmol/L (21.6-31.8); Chloride 105 mmol/L (96-109); Chol/HDL Ratio 2.15 Ratio; Globulin 2.2 g/dL (1.6-3.3); Glucose 87 mg/dL (70-110); LDL Cholesterol,Calculated 62.3 mg/dL (0.0-131.0); Potassium 4.3 mmol/L (3.5-5.5); Sodium 143 mmol/L (135-145); Total Bilirubin 0.4 mg/dL (0.3-1.2); Total Protein 6.4 g/dL (6.2-8.2)
== END | disposition home or self-care (01) ==
LOC: LABWHC1 07:10
PROVIDERS: ATTEND Internal Medicine Interventional Cardiology
DX: E78.2 Mixed hyperlipidemia (principal)
CPT/HCPCS: 36415; 80053; 80061; 85652

== ENCOUNTER → 2023-09-10 | Outpatient (CLI) | payer MEDICARE | END | disposition home or self-care (01) | LOC: LABWHC1 07:12 | PROVIDERS: ATTEND Internal Medicine | DX: Z53.9 Procedure and treatment not carried out, unspecified reason (principal) ==

== ENCOUNTER → 2024-01-24 | Outpatient (CLI) | payer MEDICARE ==
--- NOTE | 2024-01-27 11:43 | CT ---
EXAMINATION TYPE: CT Chest Abd Pelvis wo con CT DLP: 335.5 mGycm, Automated exposure control for dose reduction was used. DATE OF EXAM: 01/24/2024 2:21 PM COMPARISON: 09/30/[address] and 01/19/2023 CLINICAL INDICATION:Female, 73 years old with history of esophageal carcinoma; PHH, f/u esophageal ca Technique: CT Chest Abd Pelvis wo con; Multiple axial images were obtained. Two-dimensional coronal a nd sagittal reconstructions were obtained. Contrast used: mL of , Oral contrast used: without Oral Contrast Findings: CHEST: 2 cm pleural-based nodule is seen in the paravertebral right lower lobe. This appears solid an d has 2 or 3 spiculations at the margins LUNGS/ PLEURA: The lung parenchyma appears unremarkable. AIRWAY: Patent and unremarkable. HEART: Size within normal limits. MEDIASTINUM: No gross evidence of adenopathy. VASCULATURE: No aortic aneurysm. MUSCULOSKELETAL: No acute osseous abnormalities. SOFT TISSUES/LYMPH NODES: Unremarkable. LOWER NECK: No significant findings. ABDOMEN: ABDOMEN LIVER: Unremarkable GALLBLADDER AND BILE DUCTS: Unremarkable. PANCREAS: Unremarkable. SPLEEN: Unremarkable. ADRENAL GLANDS: Unremarkable. KIDNEYS AND URETERS: No evidence of hydronephrosis or renal calculus. The ureters are unremarkable. PELVIS BLADDER: Unremarkable REPRODUCTIVE: Unremarkable. ABDOMEN & PELVIS STOMACH AND BOWEL: Stomach and duodenum are unremarkable. No evidence of bowel obstruction. PERITONEUM: No evidence of pneumoperitoneum or free fluid. VASCULATURE: No evidence of aortic aneurysm. MUSCULOSKELETAL: No acute osseous abnormalities LYMPH NODES: No gross evidence for lymphadenopathy. SOFT TISSUE/ABDOMINAL WALL: Unremarkable IMPRESSION: 2 cm pleural-based mass in the right lower lobe, paravertebral location. Appears solid and has some s piculations. PET CT or biopsy might be considered. No acute process in the abdomen or pelvis. Follow up recommendations for incidental pulmonary nodules are per [employer] or [employer].
== END | disposition home or self-care (01) ==
LOC: RADCTMAIN 11:51
PROVIDERS: ATTEND Surgery
DX: C15.9 Malignant neoplasm of esophagus, unspecified (principal); R91.8 Other nonspecific abnormal finding of lung field
CPT/HCPCS: 71250; 74176

== ENCOUNTER → 2024-04-07 | Outpatient (CLI) | payer MEDICARE ==
[2024-04-07 10:27] LABS: Chol/HDL Ratio 1.95 Ratio; VLDL Calculation 12.24 mg/dL (5.00-40.00)
[2024-04-07 10:28] LABS: ALT 19 U/L (8-44); AST 24 U/L (13-35); LDL Cholesterol,Calculated 52.7 mg/dL (0.0-131.0)
== END | disposition home or self-care (01) ==
LOC: LABWHC1 07:05
PROVIDERS: ATTEND Internal Medicine Interventional Cardiology
DX: E78.2 Mixed hyperlipidemia (principal)
CPT/HCPCS: 36415; 80061; 84450; 84460

== ENCOUNTER → 2024-04-20 | Outpatient (CLI) | payer MEDICARE | END | disposition home or self-care (01) | LOC: LABWHC1 11:16 | PROVIDERS: ATTEND Internal Medicine | DX: M31.4 Aortic arch syndrome [Takayasu] (principal) | CPT/HCPCS: 36415; 85652; 86140 ==

== ENCOUNTER → 2025-04-05 | Outpatient (CLI) | payer MEDICARE ==
[2025-04-05 13:20] LABS: ALT 33 U/L (8-44); AST 38 U/L (13-35); Albumin 4.2 g/dL (3.8-4.9); Albumin/Globulin Ratio 1.56 Ratio (1.60-3.17); Alkaline Phosphatase 97 U/L (41-126); Anion Gap 9.70 mmol/L (4.00-12.00); BUN/Creat Ratio 19.88 Ratio (12.00-20.00); Blood Urea Nitrogen 15.9 mg/dL (9.0-27.0); Calcium 9.2 mg/dL (8.7-10.3); Carbon Dioxide 28.3 mmol/L (21.6-31.8); Chloride 103 mmol/L (96-109); Cholesterol 135.00 mg/dL (0.00-200.00); Globulin 2.7 g/dL (1.6-3.3); Glucose 89 mg/dL (70-110); HDL Cholesterol 66.70 mg/dL (40.00-60.00); LDL Cholesterol,Calculated 56.0 mg/dL (0.0-131.0); Potassium 3.9 mmol/L (3.5-5.5); Sodium 141 mmol/L (135-145); Total Protein 6.9 g/dL (6.2-8.2); Triglycerides 61.50 mg/dL (0.00-149.00); VLDL Calculation 12.30 mg/dL (5.00-40.00)
== END | disposition home or self-care (01) ==
LOC: LABWHC1 07:56
PROVIDERS: ATTEND Nurse Practitioner Adult Health
DX: E78.2 Mixed hyperlipidemia (principal)
CPT/HCPCS: 36415; 80053; 80061; 85652; 86140

== ENCOUNTER → 2025-04-16 | Outpatient (CLI) | payer MEDICARE ==
[2025-04-16 12:21] VITALS: BP 137/92; PULSE 79; RESP 16; TEMP 97.7
[2025-04-16] MEDS: DENOSUMAB 60 MG/ML 1 ML SYRINGE SQ NR (12:21)
== END ==
LOC: PROCWHC3 12:07
PROVIDERS: ATTEND Physician Assistant
DX: M81.0 Age-related osteoporosis without current pathological fracture (principal)
CPT/HCPCS: 96372; J0897